=== PATIENT | male | born 1980 | race Caucasian/White ===

== ENCOUNTER → 2017-09-15 17:54 | Outpatient (CLI) | payer BC, SELFPAY ==
--- NOTE | 2017-09-15 17:56 | MRI_ITS ---
STUDY: MRI LUMBAR SPINE WITHOUT CONTRAST REASON FOR EXAM: Male, 36 years old. Low back pain increasing lower leg pain TECHNIQUE: Standardized fat and water weighted pulse sequences were obtained in the sagittal and axial planes. COMPARISON: August 17, 2016 FINDINGS: T12-L1: Normal endplates. Normal disc height, hydration and morphology. Normal bilateral facet joints. Normal central canal and bilateral lateral recesses. Normal bilateral intervertebral neural foramina. Normal lumbar lordosis. There is no substantial scoliosis. Normal conus medullaris that terminates at T12 L1-2: Normal endplates. Normal disc height, hydration and morphology. Normal bilateral facet joints. Normal central canal and bilateral lateral recesses. Normal bilateral intervertebral neural foramina. L2-3: Normal endplates. Normal disc height, hydration and morphology. Normal bilateral facet joints. Normal central canal and bilateral lateral recesses. Normal bilateral intervertebral neural foramina. L3-4: Normal endplates. Normal disc height, hydration and minimal annular bulge.. Bilateral facet arthropathy.. Normal central canal and bilateral lateral recesses. Normal bilateral intervertebral neural foramina. L4-5: Normal endplates. Normal disc height, hydration and intimal annular bulge.. Mild facet arthropathy.. Normal central canal and bilateral lateral recesses. Normal bilateral intervertebral neural foramina. L5-S1: Degenerative endplate changes.. Normal disc height, desiccation and minimal annular bulge with tiny central disc protrusion.. Mild facet arthropathy. Normal central canal and bilateral lateral recesses. Normal bilateral intervertebral neural foramina. Normal visualized sacral ala. Normal visualized paraspinous soft tissue structures. No significant change since prior exam MRI/Spine Lumbar (Routine) IMPRESSION: Multilevel minimal bulging of the annuli and facet arthropathy. Tiny central disc protrusion at L5-S1. No significant spinal stenosis. Electronically Signed: Tra Estes MD at 20:40 EDT , Service support ,
== END ==
PROVIDERS: Family Provider Preventive Medicine Occupational Medicine; PCP Preventive Medicine Occupational Medicine; Visit Provider Anesthesiology Pain Medicine
DX: M54.9 Dorsalgia, unspecified (principal); M79.604 Pain in right leg
CPT/HCPCS: 72148

== ENCOUNTER 2020-01-05 15:53 | Emergency (ER) | payer BC, SELFPAY ==
[2020-01-05 15:54] VITALS: BP 153/103; PULSE 53; RESP 16; TEMP 36.6; O2SAT 100; BMI 27.8
--- NOTE | 2020-01-05 16:05 | CT_ITS ---
STUDY: CT BRAIN WITHOUT CONTRAST REASON FOR EXAM: Male, 39 years old. Severe headache since 8:00 AM RADIATION DOSAGE (If Supplied By Facility): CTDIvol = ( 44.99 ) mGy, DLP = ( 796.11 ) mGycm TECHNIQUE: Transaxial CT imaging of the brain was performed without administration of intravenous contrast material. Individualized dose optimization techniques were used for this CT. COMPARISON: No relevant priors. FINDINGS: Brain parenchyma is without focal lesions, mass effect, acute intracranial hemorrhage, extra parenchymal fluid collections, hydrocephalus or herniation. The skull is intact. There is oropharyngeal airway collapse due to obstructive sleep apnea-like appearance. Paranasal sinuses are clear. CT/Brain/Head without Contrast IMPRESSION: 1. Normal CT brain. 2. Obstructive sleep apnea. Electronically Signed: Andrés Livingston, at 17:16 EDT Tel , Service support ,
--- NOTE | 2020-01-05 16:06 | ED.VIS.GEN ---
History of Present Illness Informant: Patient, Family Onset: Today Timing: Continuous Narrative: 39 year old male with no significant PMH presents with headache. Patient states this morning he got news his father and when he was driving home he developed a sudden onset frontal headache. Pain feels like it is in the front half of his head and his sharp and throbbing. He has nausea, no vomiting. He does not normally get headaches or migraines. This is the worst headache of his life. He took ibuprofen with no relief. Denies fevers, chills, vision changes, loss, diplopia, or focal motor or sensory changes. He does not take aspirin or blood thinner. <Hollie Neves - Last Filed: 01/05/20 17:18> <Tyron Prakash - Last Filed: 01/05/20 22:43> Chief Complaint: Headache Past Medical History Past Medical History: None Smoking Status: Never smoker <Hollie Neves - Last Filed: 01/05/20 17:18> <Tyron Prakash - Last Filed: 01/05/20 22:43> - Allergies and Home Meds Allergies/Adverse Reactions: Allergies No Known Allergies Allergy (Verified 01/05/20 15:53) Primary Care Physician: Lv Underwood DO [Primary Care Provider] - Review of Systems General: Denies: Chills, Fever, Sweats Eyes: Denies: Visual changes - bilaterally, Diplopia ENT: Denies: Rhinorrhea, Sore throat Cardiovascular: Denies: Chest pain, Palpitations Respiratory: Denies: Dyspnea, Cough, Dyspnea on exertion Gastrointestinal: Denies: Abdominal pain, Nausea, Vomiting, Diarrhea Musculoskeletal: Reports: Back pain, Extremity Pain. Denies: Neck pain Skin: Denies: Rash, Wounds Neurological: Reports: Headache. Denies: Weakness, Parasthesia, Numbness <Hollie Neves - Last Filed: 01/05/20 17:18> Physical Exam Vital Signs/Narrative: Vital Signs Temp Pulse Resp BP Pulse Ox 01/05/20 15:54 97.8 F 53 L 16 153/103 H 100 Inital Vital Signs reviewed: Yes General: Well nourished, Well developed, No Acute Distress Head: Normocephalic, Atraumatic Eyes: Perrl, EOMI, - - photophobic ENT: Moist mucous membranes, No rhinorrhea Neck: Supple, Nontender Cardiovascular: Regular rate, Regular rhythm, No murmurs Respiratory: No distress, CTA bilaterally, Chest nontender Extremities: No edema Skin: Normal color, No rash Neurological: Alert, Oriented x3, Cranial nerves II-XII grossly intact, Normal Strength, Normal Sensation Psychological: Normal affect, Normal Mood <Hollie Neves - Last Filed: 01/05/20 17:18> Diagnostic/Tx/Re-eval Clinical Impression(s) from Imaging Studies Brain CT 01/05/20 16:05 IMPRESSION: 1. Normal CT brain. 2. Obstructive sleep apnea. Electronically Signed: Andrés Livingston, at 17:16 EDT Tel , Service support , - Medical Decision Making Patient presented with the worst headache of his life that started at 8 am with nausea. Denies fevers, neck pain, or focal motor or sensory deficits. He appears uncomfortable but nontoxic. Vital signs show BP of 153/103, bradycardia of 53, otherwise normal. He has a normal neurological exam. CT brain showed no acute pathology. He is feeling significantly improved after IV fluids, compazine, benadryl, and toradol. He was discharged home in stable condition. <Hollie Neves - Last Filed: 01/05/20 17:18> - Medical Decision Making This patient was seen with a PA. Individually assessed they patient including history and physical. I have reviewed everything on the chart that is available and agree with the documentation provided by the PA including discussion about the assessment, treatment plan, discussion, and return precautions. <Tyron Prakash - Last Filed: 01/05/20 22:43> ED Disposition <Hollie Neves - Last Filed: 01/05/20 17:18> <Tyron Prakash - Last Filed: 01/05/20 22:43> - Plan for ED Patient: Disposition: Home or Assisted Living Diagnosis: Migraine Instructions: ED, Migraine (Classical) Referrals: Lv Underwood DO [Primary Care Provider] -
[2020-01-05] MEDS: proCHLORPERazine 10 MG/2 ML Vial IV (16:32)
[2020-01-05] MEDS: 0.9% Normal Saline 1,000 ML 1000 ML IV (16:32)
[2020-01-05] MEDS: DiphenhydrAMINE 50 MG/ML Syringe 25 MG IV (16:32)
[2020-01-05] MEDS: Ketorolac 15 MG/ML Vial IM (17:36)
[2020-01-05] MEDS: Ketorolac 15 MG/ML Vial IV (17:43)
[2020-01-05 17:45] VITALS: BP 147/81; PULSE 83; RESP 16; O2SAT 100
== END 2020-01-05 17:46 | disposition home or self-care (01) ==
PROVIDERS: Emergency Provider Physician Assistant; PCP Preventive Medicine Occupational Medicine
DX: G43.909 Migraine, unspecified, not intractable, without status migrainosus (principal); G47.33 Obstructive sleep apnea (adult) (pediatric)
CPT/HCPCS: 70450; 96361; 96372; 96374; 96375; 99283; J7030; A4216

== ENCOUNTER → 2021-08-05 | Outpatient (CLI) | payer OTHER, SELFPAY ==
--- NOTE | 2021-08-05 15:55 | RAD_ITS ---
STUDY: X-RAY - LUMBAR SPINE REASON FOR EXAM: Male, 40 years old. POSTLAMINECTOMY SYNDROME TECHNIQUE: 2 view(s) of the lumbar spine were obtained. COMPARISON: None FINDINGS: Normal lumbar lordosis. Mild levoscoliosis centered at L2. There is a normal alignment of the vertebrae. Normal vertebral bodies and endplates. Focal disc space narrowing and osteophyte formation at L5/S1 consistent with degenerative disc disease The soft tissue structures are unremarkable. RAD/Lumbar Spine 2 or 3 Views IMPRESSION: Mild levoscoliosis with focal degenerative disc disease L5/S1. Electronically Signed: Mike Wilson MD at 8:30 EDT ,
== END | disposition home or self-care (01) ==
LOC: RAD 15:47
PROVIDERS: PCP Preventive Medicine Occupational Medicine; Referring Provider Anesthesiology Pain Medicine; Visit Provider Anesthesiology Pain Medicine
DX: M96.1 Postlaminectomy syndrome, not elsewhere classified (principal)
CPT/HCPCS: 72100

== ENCOUNTER → 2022-03-10 | Outpatient (CLI) | payer OTHER, SELFPAY ==
[2022-03-10 18:33] LABS: Amphetamine Urine VISTA NEGATIVE (<1000 ng/mL); Barbiturate Urine VISTA NEGATIVE (< 200 ng/mL); Benzodiazepine Urine VISTA NEGATIVE (< 200 ng/mL); Cocaine Urine VISTA NEGATIVE (< 300 ng/mL); Ecstacy Urine VISTA POSITIVE (< 500 ng/mL); Methadone Urine VISTA NEGATIVE (< 300 ng/mL); PCP Urine VISTA NEGATIVE (< 25 ng/mL); THC Urine VISTA NEGATIVE (< 50 ng/mL); Vista UDS pH Range 4
== END | disposition home or self-care (01) ==
PROVIDERS: PCP Preventive Medicine Occupational Medicine; Visit Provider Student in an Organized Health Care Education/Training Program
DX: F90.9 Attention-deficit hyperactivity disorder, unspecified type (principal)
CPT/HCPCS: 80307

== ENCOUNTER 2023-12-31 20:24 | Emergency (ER) | payer BC, SELFPAY ==
[2023-12-31 20:25] VITALS: BP 140/114; PULSE 79; RESP 18; TEMP 36.8; O2SAT 99; BMI 29.8
--- NOTE | 2023-12-31 20:27 | EKG12_ITS ---
Test Reason : CP Blood Pressure : / mmHG Vent. Rate : 071 BPM Atrial Rate : 071 BPM P-R Int : 182 ms QRS Dur : 090 ms QT Int : 366 ms P-R-T Axes : 067 047 147 degrees QTc Int : 397 ms Normal sinus rhythm T wave abnormality, consider anterolateral ischemia Abnormal ECG Confirmed by BALTA MCGRAW, HEVER ([id number]), communications editor MERY BERRY ([id number]) on 01/04/2024 2:00:09 PM Referred By: Confirmed By:HEVER GIFFORD MD
--- NOTE | 2023-12-31 20:54 | EDS_ITS ---
HPI History of Present Illness Chief Complaint: Chest Pain Onset/Context/Timing Onset: Today Activity at onset: sudden Timing: Continuous Quality: Positive for Tightness Location: Left Chest Worsened By: Nothing Relieved By: - (Laying flat and keeping her legs elevated) Associated Symptoms: Positive for Diaphoresis, Dyspnea and Lightheadedness; Negative for Nausea, Vomiting, Cough, Fever, Acid Reflux or Palpitations Narrative Narrative: Patient presents with chest pain that began today. Patient states he was driving when the pain began. Patient describes it as a tightness. Patient states it goes into his back. Patient states his back pain is sharp. Patient s tates it is mainly over the left side of his chest. Patient states it is better when he is able to lay flat and put his legs up. Patient states nothing makes it worse. Patient states he broke out into a sweat and was having some shortness of breath with the pain. Patient states he felt dizzy and lightheaded. Patient denies any fevers or chills. CVD Risk Factors: Positive for Family History 1' </=55 and Smoking; Negative for Hypertension, Diabetes or Hypercholesterolemia PE Risk Factors: Negative for Recent Travel/Surgery, Recent Immobilization, Prior DVT or PE, Cancer or OCP + Smoking + >/=35 PFSH PFSH Medical History ADHD Drug abuse no medical history Allergy/AdvReac Type Severity Reaction Status Date / Time No Known Allergies Allergy Verified 12/31/23 20:25 Family History Mother Breast cancer Father Heart disease Hypertension Brother No problems noted. Grandfather Heart disease Surgical History History of back surgery Social History (Updated 12/31/23 @ 23:[address] Slick Sylvester DO) Smoking Status: Former smoker Electronic Cigarette Use: with nicotine alcohol intake: never substance use type: does not use ROS ROS ED Constitutional Constitutional ED: Denies chills or fever(s) Eyes Eyes: Denies blurry vision or change in vision ENT ENT ED: Denies rhinorrhea or sore throat Cardiovascular Cardiovascular: Reports as per HPI and chest pain; Denies palpitations Respiratory/Chest Respiratory/Chest: Reports dyspnea; Denies cough Gastrointestinal Gastrointestinal: Denies nausea or vomiting Genitourinary Genitourinary ED: Denies dysuria or hematuria Musculoskeletal Musculoskeletal: Reports back pain; Denies neck pain Integumentary Denies abscess or rash Neurologic Neurologic: Denies headache(s) or weakness Allergic/Immunologic Allergic/Immunologic ED: Denies mouth swelling or urticaria EXAM Physical Exam Const Vital Signs: 12/31/23 20:25 12/31/23 21:52 12/31/23 21:52 Temperature 98.2 F Temperature Source Oral Pulse Rate 79 71 Respiratory Rate 18 14 Blood Pressure 140/114 H 116/60 Blood Pressure Mean 122 78 Pulse Ox 99 99 Oxygen Delivery Method Room Air Room Air Room Air 12/31/23 22:00 12/31/23 23:00 Temperature Temperature Source Pulse Rate 74 75 Respiratory Rate 16 17 Blood Pressure 111/60 116/80 Blood Pressure Mean 77 92 Pulse Ox 98 100 Oxygen Delivery Method Room Air Room Air Positive well nourished and well developed General Appearance ED: well developed and NAD HEENT Reports moist mucous membranes Neck supple and no JVD Chest Wall palpation of chest normal Resp normal respiratory effort and clear to auscultation bilaterally Cardio regular rate and regular rhythm GI soft to palpation, non-tender and non-distended Extremity General Extremety ED: Negative for edema or tenderness General Extremity: Negative for edema Neuro oriented x3, CN's II-XII intact bilaterally and no sensory deficits noted Sensorium / Orientation: awake and alert Motor Exam: strength 5/5 throughout Psych mental status grossly normal Heart Score History: Slightly/Non-Suspicious ECG: Nonspecific Repolarization Age: </= 45 years Risk Factors: 1 or 2 Risk Factors Troponin: </= Normal Limit Score: 2 MDM MDM MDM Narrative Medical decision making narrative: Differential diagnosis includes. Dysrhythmia, cardiac ischemia, pneumonia, pneumothorax, electrolyte abnormality, GERD, and anxiety. EKG will be obtained to assess for cardiac dysrhythmia and cardiac ischemia. Chest x-ray will be obtained to assess for pneumonia and pneumothorax. CBC will be obtained to assess for leukocytosis and anemia. Basic metabolic profile will be obtained to assess for electrolyte abnormality and renal function. High-sensitivity troponin will be obtained to assess for cardiac ischemia. 2-hour repeat high- sensitivity troponin will be obtained to assess for ongoing cardiac ischemia. Lab Data Attestation: I reviewed the patient's lab results. Lab results narrative: CBC was reviewed and was within normal limits. Basic metabolic profile was reviewed and was within normal limits. High-sensitivity troponin was reviewed and was normal at 7. 2-hour repeat high-sensitivity troponin was reviewed and was normal at 6. Labs: Laboratory Results - last 24 hr 12/31/23 01/01/24 21:55 00:10 WBC 9.5 RBC 5.33 Hgb 15.6 Hct 45.1 MCV 84.6 MCH 29.3 MCHC 34.6 RDW Std Deviation 36.8 RDW Coeff of Terese 12.1 Plt Count 381 MPV 9.0 Immature Gran % (Auto) 0.200 Neut % (Auto) 70.4 H Lymph % (Auto) 18.1 L [place] % (Auto) 8.6 Eos % (Auto) 1.9 Baso % (Auto) 0.8 Absolute Neuts (auto) 6.7 Absolute Lymphs (auto) 1.71 Nucleated RBC % 0 Sodium 138 Potassium 3.8 Chloride 102 Carbon Dioxide 31.0 Anion Gap 5 BUN 10 Creatinine 1.13 Estim Creat Clear Calc 99.12 Est GFR (MDRD) Af Amer 91 Est GFR (MDRD) Non-Af 75 BUN/Creatinine Ratio 8.8 L Glucose 89 Calcium 9.2 Troponin I High Sens 7 6 Radiography Chest X-Ray - ED: 1 View, Read by ED Physician, Read by Radiologist and No Acute Disease Diagnostic Testing: Clinical Impression(s) from Imaging Studies Chest X-Ray 12/31/23 21:35 IMPRESSION: No acute radiographic abnormalities. Electronically Signed: Anthony Montenegro MD at 22:17 EDT , Portable 1 view chest x-ray was obtained. On my independent interpretation, lung potter are clear. There is normal cardiac silhouette. Bony thorax is normal. There is no acute process noted. Radiologist also interpreted the x- ray and agrees. EKG Initial EKG: Attestation: I personally reviewed and interpreted this EKG as follows: Interpretation: Sinus Rhythm (71) and Non-Specific ST Changes Comments: EKG was obtained. On my independent interpretation, it showed a normal sinus rhythm with a rate of 71. AR interval, QRS interval, and QTc intervals were all normal. [place] was normal. There are nonspecific ST-T wave changes. Prior EKG tracings: not available for review Prior: No Prior Treatment and Re-Evaluation :: Nicotine cessation was discussed. Patient was given aspirin here. Patient was advised of his findings. Patient has a HEART score of 2. Patient was advised that this is low risk for acute cardiac event. Patient was instructed to follow-up with his primary care physician in 5 to 7 days. Patient was instructed to return if worse in any way. Patient understood and was agreeable with the plan. All questions were answered. Discharge Plan Triage Chief Complaint: Chest Pain ED Provider: Slick Sylvester Dx/Rx/DC Orders Clinical Impression: Chest pain, Elevated blood pressure reading Instructions: ED Chest Pain, Uncertain Cause Primary Care Provider: Care Physician,No Primary Referrals: Lv Underwood DO [Non-Staff] - 5-7 Days Print Language: Iranian Disposition Disposition: Home, Self Care
--- NOTE | 2023-12-31 21:35 | RAD_ITS ---
INDICATION: chest pain EXAMINATION/TECHNIQUE: X-RAY - XR Chest 1 View COMPARISON: None. FINDINGS: The lungs are clear. The cardiomediastinal silhouette is unremarkable. No pleural effusion or pneumothorax. No acute osseous abnormalities. RAD/Chest 1 View (Portable) IMPRESSION: No acute radiographic abnormalities. Electronically Signed: Anthony Montenegro MD at 22:17 EDT ,
[2023-12-31 21:52] VITALS: BP 116/60; PULSE 71; RESP 14; O2SAT 99
[2023-12-31 22:00] VITALS: BP 111/60; PULSE 74; RESP 16; O2SAT 98
[2023-12-31 22:02] LABS: Absolute Lymphocyte Count 1.71 X10^3/uL (0.83-4.51); Absolute Neutrophil Count 6.7 X10^3/uL (2.0-7.7); Basophil# 0.08 X10^3/uL; Basophil% 0.8 % (0-1); Eosinophil# 0.18 X10^3/uL; Eosinophils% 1.9 % (0-5); Hematocrit 45.1 % (40-54); Hemoglobin 15.6 g/dL (13.0-16.5); Lymphocyte # 1.71 X10^3/ul (0.83-4.51); Lymphocyte % 18.1 % (19-41); Mean Corp Hgb Conc 34.6 g/dL (32-36); Mean Corpuscular Hgb 29.3 pg (27.0-32.0); Mean Corpuscular Volume 84.6 fL (80-94); Monocyte# 0.81 X10^3/uL; Monocyte% 8.6 % (0-10); NRBC Flagged by Analyzer 0 % (0-5); Neutrophil # 6.66 X10^3/uL (2.7-7.7); Neutrophil % 70.4 % (47-70); Platelet Count 381 K/mm3 (150-450); RBC Distribution Width CV 12.1 % (11.6-14.6); RBC Distribution Width SD 36.8 fl (35.1-43.9); Red Blood Count 5.33 M/mm3 (4.6-6.2); White Blood Count 9.5 K/mm3 (4.4-11.0)
[2023-12-31] MEDS: Aspirin 81 MG TAB.CHEW 324 MG PO (22:17)
[2023-12-31 22:23] LABS: Anion Gap 5 (5-15); BUN 10 mg/dL (7-18); BUN/Creat Ratio 8.8 RATIO (10-20); Calcium,Total 9.2 mg/dL (8.5-10.1); Chloride 102 mmol/L (98-107); Creatinine, Serum 1.13 mg/dL (0.70-1.30); EST Glomerular Filtration Rate 75 mL/min (>60); Est Glom Filt Rate - Afr Amer 91 mL/min (>60); Estimated Creatinine Clearance 99.12 ml/min; Glucose 89 mg/dL (74-106); Potassium 3.8 mmol/L (3.5-5.1); Sodium Level 138 mmol/L (136-145); Troponin-I HS (w/2H Reflex) 7 pg/mL (3.0-78.0)
[2023-12-31 23:00] VITALS: BP 116/80; PULSE 75; RESP 17; O2SAT 100
[2023-12-31 23:58] LABS: Reflex Troponin-HS? (from REC) Y
[2024-01-01] VITALS: BP 106/86; PULSE 74; RESP 15; TEMP 36.9; O2SAT 97
[2024-01-01 00:36] LABS: Troponin-I HS 6 pg/mL (3.0-78.0)
== END 2024-01-01 00:51 | disposition home or self-care (01) ==
PROVIDERS: Emergency Provider Emergency Medicine; Visit Provider Emergency Medicine
DX: R07.89 Other chest pain (principal); R03.0 Elevated blood-pressure reading, without diagnosis of hypertension; Z87.891 Personal history of nicotine dependence
CPT/HCPCS: 71045; 80048; 84484; 85025; 93005; 99284